=== PATIENT | male | born 1970 | race Caucasian/White ===

== ENCOUNTER 2016-06-09 07:37 | Day surgery (SDC) | payer OTHER ==
[2016-06-08 09:45] LABS: HEMATOCRIT 41.6 % (40.0-51.0)
[2016-06-08 09:53] LABS: PARTIAL THROMBO TIME 30.4 SEC (22.5-37.2)
--- NOTE | ~2016-06-09 | OP ---
Record Of Operation [facility] [address] [place]. [address] NAME: JAYESH CALVO : 70 STATUS : [facility]#: [id number] AGE: 45 ADM/REG DATE : 06/09/16 MR#: [id number] REPORT SERV DATE: 06/09/16 DICTATED BY: JOVANNA BISHOP DATE: 06/09/16 REPORT STATUS : Draft TRANSCRIBED BY: MODSylvia DATE: 06/09/16 DATE OF PROCEDURE: 06/09/2016 PREOPERATIVE DIAGNOSES: 1. Chronic rhinosinusitis. 2. Deviated nasal septum. 3. Sinus polyposis. POSTOPERATIVE DIAGNOSES: 1. Chronic rhinosinusitis. 2. Deviated nasal septum. 3. Sinus polyposis. PROCEDURES: 1. Endoscopic bilateral total ethmoidectomy. 2. Bilateral frontal sinusotomy. 3. Septoplasty. SURGEON: Jovanna Bishop M.D. ANESTHESIA: General endotracheal anesthesia was utilized. COMPLICATIONS: No complications. ESTIMATED BLOOD LOSS: 20 mL. FINDINGS: Polyps filling in ethmoid cavities and deviated nasal septum to the left 3+ and propel stents placed. INDICATIONS FOR PROCEDURE: A 45-year-old gentleman with chronic rhinosinusitis despite maximum medical therapy. On exam in clinic, he has polyps in his middle meatus. Scan shows this with disease in his ethmoid cavities and severely deviated nasal septum to the left. He has indications for procedure described. Described the risks and benefits of the procedure. He voiced understanding and signed the consent. The consent was placed in the chart at the time of operation. PROCEDURE IN DETAIL: The patient was wheeled to the OR suite and placed on the OR table in supine position. He was intubated and placed under general endotracheal anesthesia without difficulty. He was sprayed with Afrin nasal spray in both sides of his nasal cavity and 4% cocaine-soaked cottonoids were placed in both sides of the nasal cavity. The table was turned to 90 degrees. He was prepped and draped in the standard fashion for the procedures to be done using a combination of loupes and headlight and 0 degree and 30 degree endoscopes. I had scrubbed and gowned appropriately for the procedure. I would start on the patient's right-hand side with the sinus portion. I injected 2% lidocaine and 1:100,000 epinephrine along the middle turbinate and the uncinate approximately 0.5 mL. I medialized the middle turbinate and I would inject along the ethmoid bulla with another 0.5 mL. Using Record Of Operation [facility] [address] [place] [place]. [address] NAME: JAYESH CALVO : 70 STATUS : [facility]#: [id number] AGE: 45 ADM/REG DATE : 06/09/16 MR#: [id number] REPORT SERV DATE: 06/09/16 DICTATED BY: JOVANNA BISHOP DATE: 06/09/16 REPORT STATUS : Draft TRANSCRIBED BY: AAKASH DATE: 06/09/16 curette, I came to the ethmoid bulla, was visualizing the CT scan, which was on the screen during the case, and I would complete my ethmoidectomy using a microdebrider and the curette carefully visualizing the scan. I would use the frontal sinus introducer use the Acclarent balloon system to place the wire into the frontal sinus, and I inflated the balloon three times within the recess subsequently deflating the balloon and removing the wire. I visualized the recess and sinus using a 30-degree scope irrigated these areas using sterile saline and suctioned this thoroughly. I placed dry cottonoids in the sinus cavity. I then turned my attention to the septum. I injected 0.5 mL of the local on each side of the septum. I would make a peeling-type incision on the left side of the septum and elevated ipsilateral mucoperiosteal and mucoperichondrial flaps around using initially the loops and headlights, but subsequently I would use the 0 degree endoscope within the nasal flaps or the septal flaps. I would make a vertical incision in the caudal cartilage using the caudal and elevate contralateral flaps in the areas. I would remove the curved portions of the cartilage and bone, use a combination of Lilly caudal until I removed all portions. I put the flaps back together in a nice straight septum. I would close the incision after suctioning the flaps out using mattress-type 4-0 chromic gut sutures x3. I then turned my attention to the left-sided sinuses. I would inject along the middle turbinate and the uncinate side of the 0.5 mL of local. I would medialize the middle turbinate. I would inject along the ethmoid bulla and the posterior fontanelle area as well with another 0.5 mL of local. I put 1 mL of local on each side of the septum as well. I then entered the ethmoid bulla using curette, completed my ethmoidectomy using the microdebrider, the anterior and posterior ethmoid air cells, visualizing the CT scan to the skull base superiorly and laterally to the medial turbinate posteriorly through the basal lamella into the posterior ethmoid air cells and over the lamina papyracea. There were polyps filling the ethmoid cavities on both sides of the nasal cavity, and these were removed on the left side as well. I placed dry cottonoids in these areas. Once I completed my ethmoidectomy, I would then use Acclarent frontal sinus wire introduced, I put the wire in the frontal sinus with good visualization. I placed the balloon over this and inflated 3 x 12 atmosphere in the side as well. I would remove the wire and the balloon and visualize the frontal recess using a 30 degree scope. I irrigated these areas as well using sterile saline suctioned this thoroughly. I would then remove the dry cottonoids from both ethmoid cavities. I placed a large Propel stents in each ethmoid cavity, and I had good hemostasis. I suctioned out the pharynx thoroughly. I would then place Coates splints on both sides of the nasal cavity. I did outfracture both inferior turbinates. Coates splints were placed and affixed to the caudal septum using a 3-0 Nylon suture and mattress type suture, and the procedure is complete. He was returned to the care of anesthesiologist turned 90 degrees. Subsequently awoken, extubated, and stably transferred to the recovery area. Estimated blood loss 20 mL. No complications. BAKARI/ADINAL Jovanna Bishop M.D. / [id number] Record Of Operation [facility] [address] [place]. [address] NAME: JAYESH CALVO : 70 STATUS : [facility] PAT#: [id number] AGE: 45 ADM/REG DATE : 06/09/16 MR#: [id number] REPORT SERV DATE: 06/09/16 DICTATED BY: JOVANNA BISHOP DATE: 06/09/16 REPORT STATUS : Draft TRANSCRIBED BY: AAKASH DATE: 06/09/16 CC: Lien Davis M.D.
== END 2016-06-09 13:40 | disposition home or self-care (01) ==
LOC: SDC 07:37
PROVIDERS: Otolaryngology
PROC: 09SM0ZZ Reposition Nasal Septum, Open Approach (ICD-10-PCS; 2016-06-09)
PROC: 09JY4ZZ Inspection of Sinus, Percutaneous Endoscopic Approach (ICD-10-PCS; 2016-06-09)
PROC: 09TV4ZZ Resection of Left Ethmoid Sinus, Percutaneous Endoscopic Approach (ICD-10-PCS; principal; 2016-06-09 08:45)
PROC: 09TU4ZZ Resection of Right Ethmoid Sinus, Percutaneous Endoscopic Approach (ICD-10-PCS; 2016-06-09 08:45)
DX: J32.2 Chronic ethmoidal sinusitis (principal); J34.2 Deviated nasal septum; J33.8 Other polyp of sinus; H90.3 Sensorineural hearing loss, bilateral; H93.13 Tinnitus, bilateral; Z88.0 Allergy status to penicillin; Z90.49 Acquired absence of other specified parts of digestive tract; Z98.890 Other specified postprocedural states
CPT/HCPCS: 85014; 85018; 85730; 88300; 88305; A9270-GY; C1726; C2625; J0690; J2250; J2270; J2405; J2710; J3010